=== PATIENT | male | born 1955 | race Caucasian/White ===

== ENCOUNTER 2019-04-05 07:26 | Inpatient (IN) | payer MEDICAID ==
[2019-04-05 07:57] LABS: WHITE BLOOD COUNT 5.7 10^3/ul (4.8-10.8)
[2019-04-05 07:57] LABS: ADD MAN DIFF? NO; BASOPHILS % 0.7 % (0.0-2.0); EOSINOPHILS # 0.1 10^3/ul (0.0-0.5); EOSINOPHILS % 1.6 % (0.0-7.0); HEMATOCRIT 37.7 % (42.0-52.0); HEMOGLOBIN 12.4 g/dl (14.0-18.0); LYMPHOCYTES # 1.3 10^3/ul (0.8-2.9); LYMPHOCYTES % 22.1 % (15.0-51.0); MEAN CORPUSCULAR HEMOGLOBIN 26.5 pg (29.0-33.0); MEAN CORPUSCULAR HGB CONC 32.9 g/dl (32.0-37.0); MEAN CORPUSCULAR VOLUME 80.6 fl (82.0-101.0); MEAN PLATELET VOLUME 10.2 fl (7.4-10.4); MONOCYTE # 0.4 10^3/ul (0.3-0.9); MONOCYTES % 7.2 % (0.0-11.0); NEUTROPHIL # 3.9 10^3/ul (1.6-7.5); PLATELET COUNT 198 10^3/UL (140-415); RED BLOOD COUNT 4.68 10^6/ul (4.70-6.10); RED CELL DISTRIBUTION WIDTH 13.2 % (11.5-14.5)
[2019-04-05 08:08] LABS: ANION GAP 10 (5-13); BLOOD UREA NITROGEN 15 mg/dl (7-20); CALCIUM 9.2 mg/dl (8.4-10.2); CARBON DIOXIDE 28 mmol/L (21-31); CHLORIDE 99 mmol/L (97-110); CHOL/HDL RATIO 3.9 RATIO; CHOLESTEROL 214 mg/dl (100-200); CREATINE KINASE 93 IU/L (23-200); CREATININE 0.72 mg/dl (0.61-1.24); Estimated GFR > 60 mL/min (>60); GLUCOSE 326 mg/dl (70-220); HDL CHOLESTEROL 54 mg/dl (30-78); LDL CHOLESTEROL,CALCULATED 133 mg/dl; POTASSIUM 3.4 mmol/L (3.5-5.1); SODIUM 137 mmol/L (135-144); TRIGLYCERIDES 135 mg/dl (0-149)
[2019-04-05 08:09] LABS: INR 0.99; PARTIAL THROMBOPLASTIN TIME 28.6 Sec (23.0-35.0); PROTIME 13.2 Sec (11.9-14.9)
[2019-04-05 08:14] LABS: ETHANOL < 10.0 mg/dl (0-0)
[2019-04-05 08:17] LABS: HEMOGLOBIN A1C 10.6 % (0-5.9)
[2019-04-05 08:20] LABS: CK-MB 0.91 ng/ml (0.0-2.4); TROPONIN-I < 0.012 ng/ml (0.000-0.120)
[2019-04-05] MEDS: ASPIRIN 81 MG TAB PO ×2 (08:44→13:54)
[2019-04-05] MEDS: CLOPIDOGREL 75 MG TAB PO (08:53)
[2019-04-05] MEDS ORDERED: ACETAMINOPHEN 325 MG TAB PO (09:00)
[2019-04-05] MEDS ORDERED: ONDANSETRON 4 MG INJ IV ×2 (09:00→12:00)
[2019-04-05] MEDS: hydrALAzine 20 MG INJ IV (10:30)
[2019-04-05] MEDS ORDERED: morphine 2 MG INJ IV (12:00)
[2019-04-05] MEDS ORDERED: MAGNESIUM HYDROXIDE 30ML CUP PO (12:00)
[2019-04-05] MEDS ORDERED: DOCUSATE SODIUM 100 MG CAP PO (12:00)
[2019-04-05] MEDS ORDERED: HYDROCODONE/APAP (5/325) TAB PO (12:00)
[2019-04-05] MEDS ORDERED: hydrALAzine 20 MG INJ IV (12:00)
[2019-04-05] MEDS ORDERED: ALBUTEROL/IPRATROPIUM (NEB) 3 ML AMP HHN (12:00)
[2019-04-05] MEDS ORDERED: LORAZEPAM 2 MG INJ IV (12:00)
[2019-04-05] MEDS ORDERED: NACL 0.9% 3 ML SYG IV (12:00)
[2019-04-05] MEDS ORDERED: NITROGLYCERIN (SL) 0.4 MG TAB SL (12:00)
[2019-04-05] MEDS ORDERED: DEXTROSE 50% 50 ML SYRINGE IV ×2 (12:30)
[2019-04-05] MEDS ORDERED: GLUCAGON 1 MG INJ IM (12:30)
[2019-04-05] MEDS ORDERED: GLUCOSE GEL 15 GRAM TUBE BUCCAL (12:30)
[2019-04-05] MEDS ORDERED: GLUCOSE GEL 15 GRAM TUBE PO ×2 (12:30)
[2019-04-05] MEDS: INSULIN ASPART [NOVOLOG] 3 ML PEN SC ×3 (12:50→22:20)
[2019-04-05] MEDS: SOD CHLORIDE 0.45% 1,000 ML IV (13:54)
[2019-04-05] MEDS: ATORVASTATIN 80 MG TAB PO (13:54)
[2019-04-05] MEDS: LORAZEPAM 2 MG INJ IV (15:25)
[2019-04-05] MEDS: INSULIN GLARGINE [LANTus] (100 UNITS/ML) SYG SC (22:20)
[2019-04-06] MEDS: INSULIN ASPART [NOVOLOG] 3 ML PEN SC ×6 (00:16→21:01)
[2019-04-06] MEDS: ACCU-CHEK XX (01:16)
[2019-04-06 05:36] LABS: ADD MAN DIFF? NO
[2019-04-06 05:38] LABS: BASOPHILS % 0.4 % (0.0-2.0); EOSINOPHILS # 0.1 10^3/ul (0.0-0.5); EOSINOPHILS % 1.1 % (0.0-7.0); HEMATOCRIT 40.4 % (42.0-52.0); HEMOGLOBIN 13.4 g/dl (14.0-18.0); LYMPHOCYTES # 1.2 10^3/ul (0.8-2.9); LYMPHOCYTES % 14.7 % (15.0-51.0); MEAN CORPUSCULAR HEMOGLOBIN 26.2 pg (29.0-33.0); MEAN CORPUSCULAR HGB CONC 33.2 g/dl (32.0-37.0); MEAN CORPUSCULAR VOLUME 79.1 fl (82.0-101.0); MEAN PLATELET VOLUME 9.8 fl (7.4-10.4); MONOCYTE # 0.6 10^3/ul (0.3-0.9); MONOCYTES % 7.3 % (0.0-11.0); NEUTROPHILS % 76.2 % (39.0-77.0); PLATELET COUNT 223 10^3/UL (140-415); RED BLOOD COUNT 5.11 10^6/ul (4.70-6.10); RED CELL DISTRIBUTION WIDTH 13.3 % (11.5-14.5)
[2019-04-06 05:38] LABS: WHITE BLOOD COUNT 7.8 10^3/ul (4.8-10.8)
[2019-04-06 06:05] LABS: ANION GAP 8 (5-13); BLOOD UREA NITROGEN 15 mg/dl (7-20); CALCIUM 9.5 mg/dl (8.4-10.2); CARBON DIOXIDE 30 mmol/L (21-31); CHLORIDE 101 mmol/L (97-110); CREATININE 0.71 mg/dl (0.61-1.24); Estimated GFR > 60 mL/min (>60); GLUCOSE 171 mg/dl (70-220); MAGNESIUM 2.2 mg/dl (1.7-2.5); PHOSPHORUS 4.1 mg/dl (2.5-4.9); POTASSIUM 3.3 mmol/L (3.5-5.1); SODIUM 139 mmol/L (135-144)
[2019-04-06 06:28] LABS: CHOL/HDL RATIO 3.6 RATIO; HDL CHOLESTEROL 63 mg/dl (30-78); LDL CHOLESTEROL,CALCULATED 142 mg/dl; TRIGLYCERIDES 120 mg/dl (0-149)
[2019-04-06 06:28] LABS: CHOLESTEROL 229 mg/dl (100-200)
[2019-04-06 08:09] LABS: HEMOGLOBIN A1C 10.3 % (0-5.9)
[2019-04-06] MEDS: ATORVASTATIN 80 MG TAB PO (08:37)
[2019-04-06] MEDS: CLOPIDOGREL 75 MG TAB PO (08:38)
[2019-04-06] MEDS: CALCIUM CARBONATE 1.25 GM TAB PO (08:38)
[2019-04-06] MEDS: ASPIRIN 81 MG TAB PO (08:38)
[2019-04-06] MEDS: POTASSIUM CHLORIDE (SR) 20 MEQ TAB PO (11:52)
[2019-04-06 15:10] LABS: RAPID PLASMA REAGIN NONREACTIVE (NR)
[2019-04-06 16:24] LABS: ADD UMIC YES; UR ASCORBIC ACID NEGATIVE (NEGATIVE); UR BILIRUBIN (Dip) NEGATIVE (NEGATIVE); UR BLOOD (Dip) 1+ mg/dL (NEGATIVE); UR CLARITY SLIGHTLY CLOUDY (CLEAR); UR COLOR YELLOW (YELLOW); UR GLUCOSE (Dip) 1+ mg/dL (NEGATIVE); UR KETONES (Dip) NEGATIVE (NEGATIVE); UR LEUKOCYTE ESTERASE (Dip) NEGATIVE Leu/ul (NEGATIVE); UR NITRITE (Dip) NEGATIVE (NEGATIVE); UR RBC 5 /HPF (0-5); UR SPECIFIC GRAVITY (Dip) 1.025 (1.003-1.030); UR TOTAL PROTEIN (Dip) NEGATIVE (NEGATIVE); UR UROBILINOGEN (Dip) 1+ mg/dL (NEGATIVE); UR WBC 3 /HPF (0-5)
[2019-04-06 16:46] LABS: AMPHETAMINE/METHAMPHETAMINE Negative (NEGATIVE); BARBITURATES Negative (NEGATIVE); BENZODIAZEPINES Negative (NEGATIVE); CANNABINOIDS Negative (NEGATIVE); COCAINE Negative (NEGATIVE); OPIATES Negative (NEGATIVE)
[2019-04-06] MEDS: INSULIN GLARGINE [LANTus] (100 UNITS/ML) SYG SC (21:01)
[2019-04-07] MEDS: ACCU-CHEK XX (02:00)
[2019-04-07 06:14] LABS: ADD MAN DIFF? NO
[2019-04-07 06:17] LABS: WHITE BLOOD COUNT 11.9 10^3/ul (4.8-10.8)
[2019-04-07 06:17] LABS: BASOPHILS % 0.2 % (0.0-2.0); EOSINOPHILS % 0.3 % (0.0-7.0); HEMOGLOBIN 12.8 g/dl (14.0-18.0); LYMPHOCYTES # 1.2 10^3/ul (0.8-2.9); LYMPHOCYTES % 9.8 % (15.0-51.0); MEAN CORPUSCULAR HEMOGLOBIN 26.2 pg (29.0-33.0); MEAN CORPUSCULAR HGB CONC 32.8 g/dl (32.0-37.0); MEAN CORPUSCULAR VOLUME 79.8 fl (82.0-101.0); MEAN PLATELET VOLUME 10.3 fl (7.4-10.4); MONOCYTE # 0.9 10^3/ul (0.3-0.9); MONOCYTES % 7.6 % (0.0-11.0); NEUTROPHIL # 9.7 10^3/ul (1.6-7.5); NEUTROPHILS % 81.8 % (39.0-77.0); PLATELET COUNT 205 10^3/UL (140-415); RED BLOOD COUNT 4.89 10^6/ul (4.70-6.10); RED CELL DISTRIBUTION WIDTH 13.4 % (11.5-14.5)
[2019-04-07 07:10] LABS: ANION GAP 9 (5-13); BLOOD UREA NITROGEN 13 mg/dl (7-20); CARBON DIOXIDE 28 mmol/L (21-31); CHLORIDE 102 mmol/L (97-110); CREATININE 0.78 mg/dl (0.61-1.24); Estimated GFR > 60 mL/min (>60); GLUCOSE 208 mg/dl (70-220); POTASSIUM 3.3 mmol/L (3.5-5.1); SODIUM 139 mmol/L (135-144)
[2019-04-07] MEDS: ACETAMINOPHEN 325 MG TAB PO (07:23)
[2019-04-07] MEDS: CLOPIDOGREL 75 MG TAB PO (08:21)
[2019-04-07] MEDS: ATORVASTATIN 80 MG TAB PO (08:21)
[2019-04-07] MEDS: ASPIRIN 81 MG TAB PO (08:22)
[2019-04-07] MEDS: CALCIUM CARBONATE 1.25 GM TAB PO (08:22)
[2019-04-07] MEDS: POTASSIUM CHLORIDE (SR) 20 MEQ TAB PO (10:54)
[2019-04-07] MEDS: LOSARTAN 25 MG TAB PO (10:55)
== END 2019-04-07 11:50 | disposition home or self-care (01) | DRG 65 ==
LOC: E/R 07:26 → 6WM 08:52
PROVIDERS: Hospitalist
DX: I63.9 Cerebral infarction, unspecified (principal); G81.94 Hemiplegia, unspecified affecting left nondominant side; E11.65 Type 2 diabetes mellitus with hyperglycemia; I10 Essential (primary) hypertension; E78.5 Hyperlipidemia, unspecified; R29.810 Facial weakness; R47.1 Dysarthria and anarthria; E87.6 Hypokalemia; Z79.4 Long term (current) use of insulin; Z79.82 Long term (current) use of aspirin; Z79.02 Long term (current) use of antithrombotics/antiplatelets
CPT/HCPCS: 70450; 70496; 70498; 70551; 71045; 80048; 80061; 80307; 81001; 82550; 82553; 82962; 83036; 83735; 84100; 84439; 84443; 84484; 85025; 85610; 85651; 85730; 86592; 92610; 93005; 93306; 93880; 97161; 97166; 99285-25